=== PATIENT | female | born 1955 | race American Indian/Alaskan Native ===

== ENCOUNTER 2020-06-14 13:49 | Emergency (ER) | payer SELFPAY ==
[2020-06-14 13:55] VITALS: BP 114/60
--- NOTE | 2020-06-14 16:51 | Emergency Department Report ---
Chief Complaint: Extremity Problem,Nontraumatic Stated Complaint: LEF TLEG PAIN Time Seen by Provider: 06/14/20 16:43 - HPI History of Present Illness: Patient is a 64-year-old female who presents emergency room with complaints of left thigh pain and [id number] sensation in her bilateral feet that has been ongoing for a couple of months. Patient states that she has history of diabetes and believes it is secondary to this. She states that she stopped taking her metformin on her own due to GI upset. she states that she has not taken her metformin since October. She has not taken anything for her diabetes since October. She denies any leg swelling, calf pain, fall, injury, weakness, paralysis. vitals are normal BG 213 discussed results with pt and the importance of PCP follow up for glycemic control and to change her metformin on exam: no leg edema, no bony ttp, no signs of ulceration, neurovascularly intact, no calf ttp Patient is presenting with ongoing leg pain for a couple of months Her symptoms appear most likely consistent with diabetic neuropathy Patient will be referred to primary care physician for further evaluation and management Discussed very strict return precautions with patient Medical screen examination performed there is no threat to life or limb at this time - Exam Vital Signs: Vital Signs 06/14/20 13:54 Temperature 97.8 F Pulse Rate 93 H Respiratory 20 Rate Blood Pressure 114/60 O2 Sat by Pulse 100 Oximetry MSE screening note: Focused history and physical exam performed. ED Disposition for MSE Clinical Impression: Left thigh pain, Pins and needles sensation Diabetes Qualifiers: Diabetes mellitus type: type 2 Diabetes mellitus assisted insulin use: without termite exterminator helper use Diabetes mellitus complication status: with diabetic arthropathy Diabetes mellitus complication detail: with neuropathic arthropathy Qualified Code(s): E11.610 - Type 2 diabetes mellitus with diabetic neuropathic arthropathy Disposition: MED SCREENING EXAM-LEFT Is pt being admited?: No Does the pt Need Aspirin: No Condition: Stable Instructions: Diabetes Mellitus Type 2 in Adults (ED), Diabetic Neuropathy (ED) Additional Instructions: please take tylenol as needed for pain every 8 hours. may use tiger balm ointment or arthritis ointment over the counter. follow up with a primary care doctor regarding your symptoms and for better control of your diabetes. there are several risks associated with assisted uncontrolled diabetes. return to the emergency room for any new or worsening symptoms. Referrals: STELLA RUELSA MD [Staff Physician] - 2-3 Days Time of Disposition: 16:49 Print Language: [place]
== END 2020-06-14 17:06 | disposition left against medical advice (07) ==
LOC: ED 13:49
DX: M79.605 Pain in left leg (principal); Z53.21 Procedure and treatment not carried out due to patient leaving prior to being seen by health care provider
CPT/HCPCS: 82962